=== PATIENT | male | born 1980 | race American Indian/Alaskan Native ===

== ENCOUNTER 2018-08-14 18:57 | Emergency (ER) | payer SELFPAY ==
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
[2018-08-14] MEDS ORDERED: Escitalopram 10 MG Tab PO ONE (20:27)
[2018-08-14] MEDS ORDERED: OLANZapine 5 MG Tab PO ONE (20:28)
[2018-08-14] MEDS ORDERED: Divalproex Sodium Delayed-Release 250 MG Tab.CR PO ONE (20:29)
[2018-08-15] MEDS ORDERED: Escitalopram 10 MG Tab PO ONE (07:54)
== END 2018-08-15 09:46 | disposition home or self-care (01) ==
LOC: JP.ED 18:57
DX: R00.1 Bradycardia, unspecified (principal); S40.812A Abrasion of left upper arm, initial encounter; S40.811A Abrasion of right upper arm, initial encounter; Z79.899 Other long term (current) drug therapy; W45.8XXA Other foreign body or object entering through skin, initial encounter; Z91.030 Bee allergy status; Z91.013 Allergy to seafood; Z88.8 Allergy status to other drugs, medicaments and biological substances
CPT/HCPCS: 36415; 80053; 80305; 81001; 85025; 93005; 99284; A9270; G0480

== ENCOUNTER 2018-08-15 13:39 | Emergency (ER) | payer SELFPAY ==
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
== END 2018-08-15 14:35 | disposition home or self-care (01) ==
LOC: JP.ED 13:39
DX: L60.0 Ingrowing nail (principal); F43.20 Adjustment disorder, unspecified; F17.210 Nicotine dependence, cigarettes, uncomplicated; Z91.030 Bee allergy status; Z88.5 Allergy status to narcotic agent; Z88.8 Allergy status to other drugs, medicaments and biological substances; Z79.899 Other long term (current) drug therapy
CPT/HCPCS: 99283